=== PATIENT | male | born 1950 | race Caucasian/White ===

== ENCOUNTER → 2017-12-21 | Outpatient (CLI) | payer MEDICARE ==
[~2017-12-21] MED LIST: ALL300 PO; ALLO-2 PEG; ALLO-2 PO; ALLO100T70 PO; ASPI-715 PO; AUG875 PO; CEP500 PO; CHOL100060 PO; COL0.6 PO; COLC0.6C3 PO; CYC10 PO; GLUC100026 PO; HYDR-2954 PO; KET10 PO; LISI-353 PO; LISI-355 PO; MILK1POW MC; PER PO; PRO25 PO; RAMI5CAP63 PO; SIL50 FT; SIL50 PO; VITE400 PO
== END ==
LOC: LAB 11:50
PROVIDERS: ATTEND Emergency Medicine
DX: I10 Essential (primary) hypertension (principal)
CPT/HCPCS: 36415; 82310; 82374; 82435; 82565; 82947; 84132; 84295; 84520

== ENCOUNTER → 2018-07-02 | Outpatient (CLI) | payer MEDICARE ==
[2018-07-02 11:45] LABS: PLATELET COUNT, AUTOMATED 261 K/uL (150-450)
[2018-07-02 11:55] LABS: LDL CHOLESTEROL 110 mg/dl
== END ==
LOC: LAB 11:25
PROVIDERS: ATTEND Emergency Medicine
DX: Z12.5 Encounter for screening for malignant neoplasm of prostate (principal); I10 Essential (primary) hypertension
CPT/HCPCS: 36415; 82040; 82247; 82310; 82374; 82435; 82465; 82565; 82947; 83718; 84075; 84132; 84153; 84155; 84295; 84450; 84460; 84478; 84520; 85025

== ENCOUNTER → 2018-08-09 | Outpatient (CLI) | payer MEDICARE ==
[~2018-08-09] MED LIST changes: +ATOR20TA65 PO; +PNEU0.5D3 IM
== END ==
LOC: LAB 10:46
PROVIDERS: ATTEND Emergency Medicine
DX: E78.5 Hyperlipidemia, unspecified (principal); R20.8 Other disturbances of skin sensation
CPT/HCPCS: 36415; 82465; 82607; 83718; 84478